=== PATIENT | female | born 1985 | race Caucasian/White ===

== ENCOUNTER 2025-02-05 06:54 | Inpatient (IN) | payer OTHER ==
[~2025-02-05] VITALS: Ht 170.2 cm; Wt 203.7 kg
[2025-02-05] VITALS (39 sets, daily range): BP systolic 100–162; BP diastolic 43–101; PULSE 17–88; RESP 11–31; TEMP 36.2–37.7; O2SAT 96–100
[2025-02-05 07:17] LABS: BASOPHILS % 0.9 % (0.0-2.0); EOSINOPHILS % 0.4 % (0.0-5.0); HEMATOCRIT. 29.0 % (36.0-48.0); HEMOGLOBIN. 9.2 g/dL (12.0-16.0); LYMPHOCYTES % 9.9 % (20.0-50.0); MEAN PLATELET VOLUME 9.4 fl (7.4-10.4); MONOCYTES % 6.9 % (2.0-8.0); NEUTROPHILS % 81.9 % (40.0-76.0); PLATELET 313 x1000/uL (130-400); RED BLOOD CELL COUNT 3.47 mill/uL (4.2-5.4); RED CELL DISTRIBUTION WIDTH 17.1 % (11.6-14.6)
[2025-02-05 07:54] LABS: CREATININE 3.4 mg/dL (0.6-1.0)
[2025-02-05 07:55] LABS: TROPONIN I HIGH SENSITIVITY 6 ng/L (3.0-34); UREA NITROGEN BLOOD 83 mg/dL (9-23)
[2025-02-05 07:57] LABS: ASPARTATE AMINOTRANSFERASE 37 IU/L (<34); BILIRUBIN DIRECT 0.4 mg/dL (<=3.0); BILIRUBIN TOTAL 0.8 mg/dL (0.1-1.0); PROTEIN TOTAL 7.2 g/dL (6.0-8.3)
[2025-02-05 08:06] LABS: BG BASE EXCESS -9.9 mmol/L (-2.0-3.0); BG CARBOXYHEMOGLOBIN 0.6 % (0.5-1.5); BG DEOXYHEMOGLOBIN 0.5 % (0.0-5.0); BG FRACTION INSPIRED OXYGEN 100; BG HCO3 ACT 19.2 mmol/L (21.0-28.0); BG METHEMOGLOBIN 0.1 % (0.5-1.5); BG OXYGEN SATURATION 99.5 % (94.0-98.0); BG OXYHEMOGLOBIN 98.8 % (94.0-98.0); BG PCO2 59.0 mmHg (32.0-45.0); BG PH 7.130 (7.350-7.450); BG PO2 388.5 mmHg (83.0-108.0); BG SAMPLE SITE RIGHT RADIAL; BG TOTAL HEMOGLOBIN 10.0 g/dL (12.0-16.0); BG VENT MODE MASK - BIPAP; BG VENT RATE 18.0 set
[2025-02-05] MEDS ORDERED: ALBUTEROL (0.5%) 2.5MG/0.5ML NEB HHN ONE (08:30)
[2025-02-05] MEDS ORDERED: SODIUM BICARBONATE 8.4% 50MEQ/50ML VIAL IV ONE (08:30)
[2025-02-05] MEDS: CALCIUM GLUCONATE 100MG/ML 10ML VIAL IV ONE (08:48)
[2025-02-05] MEDS: SODIUM BICARBONATE 8.4% 50MEQ/50ML VIAL IV NR ×2 (08:48→10:30)
[2025-02-05] MEDS: FUROSEMIDE 40MG/4ML VIAL IV ONE (08:49)
[2025-02-05] MEDS: DEXTROSE 50% WATER 50ML SYRINGE IV ONE (08:49)
[2025-02-05] MEDS: ALBUTEROL (0.5%) 2.5MG/0.5ML NEB HHN NR ×2 (08:50→10:30)
[2025-02-05] MEDS: INSULIN REGULAR (HUMULIN R) 1000UNITS/10ML VIAL IV ONE (08:51)
[2025-02-05 09:04] LABS: BG BASE EXCESS -10.2 mmol/L (-2.0-3.0); BG CARBOXYHEMOGLOBIN 0.7 % (0.5-1.5); BG DEOXYHEMOGLOBIN 2.2 % (0.0-5.0); BG FRACTION INSPIRED OXYGEN 40; BG HCO3 ACT 18.4 mmol/L (21.0-28.0); BG METHEMOGLOBIN 0.0 % (0.5-1.5); BG OXYGEN SATURATION 97.8 % (94.0-98.0); BG OXYHEMOGLOBIN 97.1 % (94.0-98.0); BG PCO2 53.4 mmHg (32.0-45.0); BG PH 7.154 (7.350-7.450); BG PO2 125.9 mmHg (83.0-108.0); BG SAMPLE SITE RIGHT RADIAL; BG TOTAL HEMOGLOBIN 10.3 g/dL (12.0-16.0); BG VENT MODE MASK - BIPAP; BG VENT RATE 18.0 set
[2025-02-05] MEDS ORDERED: INSULIN REGULAR (HUMULIN R) 1000UNITS/10ML VIAL IV NR (10:30)
[2025-02-05] MEDS ORDERED: CALCIUM GLUCONATE 100MG/ML 10ML VIAL IV NR (10:30)
[2025-02-05] MEDS ORDERED: DEXTROSE 50% WATER 50ML SYRINGE IV NR (10:30)
[2025-02-05] MEDS: IPRATROPIUM/ALBUTEROL 0.5-3(2.5)MG/3ML NEB HHN SCH (11:49)
[2025-02-05 12:41] LABS: BG BASE EXCESS -9.0 mmol/L (-2.0-3.0); BG CARBOXYHEMOGLOBIN 0.7 % (0.5-1.5); BG DEOXYHEMOGLOBIN 3.3 % (0.0-5.0); BG FRACTION INSPIRED OXYGEN 28; BG HCO3 ACT 19.4 mmol/L (21.0-28.0); BG METHEMOGLOBIN 0.3 % (0.5-1.5); BG OXYGEN SATURATION 96.7 % (94.0-98.0); BG OXYHEMOGLOBIN 95.7 % (94.0-98.0); BG PCO2 54.1 mmHg (32.0-45.0); BG PH 7.172 (7.350-7.450); BG PO2 99.8 mmHg (83.0-108.0); BG SAMPLE SITE RIGHT RADIAL; BG TOTAL HEMOGLOBIN 10.5 g/dL (12.0-16.0); BG TOTAL RESPIRATORY RATE 34 b/min; BG VENT MODE MASK - BIPAP; BG VENT RATE 30.0 set
[2025-02-05] MEDS: SODIUM ZIRCONIUM CYCLOSILICATE 10GM/PACKET PO SCH (13:30)
[2025-02-05] MEDS: SODIUM BICARBONATE 8.4% 50MEQ/50ML SYR IV NR (14:07)
[2025-02-05] MEDS: PANTOPRAZOLE SODIUM 40 MG/VIAL IV SCH (14:31)
[2025-02-05] MEDS ORDERED: DEXTROSE 50% WATER 50ML SYRINGE IV PRN (14:45)
[2025-02-05] MEDS ORDERED: NALOXONE HCL 1MG/ML 2ML VIAL ONE (15:17)
[2025-02-05] MEDS: NALOXONE HCL 1MG/ML 2ML VIAL IV SCH (15:43)
[2025-02-05] MEDS ORDERED: NALOXONE HCL 1MG/ML 2ML VIAL IV SCH (15:45)
[2025-02-05] MEDS ORDERED: NALOXONE HCL 0.4MG/ML 1ML VIAL IV PRN (16:00)
[2025-02-05 17:29] LABS: CREATININE 3.2 mg/dL (0.6-1.0); UREA NITROGEN BLOOD 77.0 mg/dL (9-23)
[2025-02-05] MEDS: BLOOD SUGAR DIAGNOSTIC STRIP TEST SCH (17:48)
[2025-02-05] MEDS: PROPOFOL 10MG/ML 100ML 100 ML IV PRN (17:49)
[2025-02-05 18:09] LABS: BG BASE EXCESS -8.4 mmol/L (-2.0-3.0); BG CARBOXYHEMOGLOBIN 0.6 % (0.5-1.5); BG DEOXYHEMOGLOBIN 1.2 % (0.0-5.0); BG FRACTION INSPIRED OXYGEN 60; BG HCO3 ACT 18.7 mmol/L (21.0-28.0); BG METHEMOGLOBIN 0.3 % (0.5-1.5); BG OXYGEN SATURATION 98.8 % (94.0-98.0); BG OXYHEMOGLOBIN 97.9 % (94.0-98.0); BG PCO2 45.0 mmHg (32.0-45.0); BG PEEP (cmH2O) 5.0 cmH2O; BG PH 7.237 (7.350-7.450); BG PO2 153.1 mmHg (83.0-108.0); BG SAMPLE SITE LEFT RADIAL; BG TIDAL VOLUME(mL) 450.0 mL; BG TOTAL HEMOGLOBIN 10.7 g/dL (12.0-16.0); BG VENT MODE VENT - AC; BG VENT RATE 22.0 set
[2025-02-05 18:16] LABS: HEMATOCRIT. 30.3 % (36.0-48.0); HEMOGLOBIN. 9.5 g/dL (12.0-16.0); MEAN PLATELET VOLUME 9.1 fl (7.4-10.4); PLATELET 294 x1000/uL (130-400); RED BLOOD CELL COUNT 3.61 mill/uL (4.2-5.4); RED CELL DISTRIBUTION WIDTH 16.6 % (11.6-14.6)
[2025-02-05 18:29] LABS: CREATININE 3.3 mg/dL (0.6-1.0); UREA NITROGEN BLOOD 78 mg/dL (9-23)
[2025-02-05 18:31] LABS: PHOSPHORUS 7.8 mg/dL (2.5-4.9)
[2025-02-05] MEDS: INSULIN LISPRO 100 UNITS/ML SUBCUT SCH (18:48)
[2025-02-05] MEDS: SODIUM BICARBONATE 8.4% 50MEQ/50ML SYR IV SCH (18:48)
[2025-02-05 19:02] LABS: BAND% 1.0 % (1.0-6.0); LYMPHOCYTES % MANUAL 5.0 % (20.0-60.0); MONOCYTES % MANUAL 4.0 % (2.0-8.0); NEUTROPHILS % MANUAL 90.0 % (45.0-75.0); PLATELET ESTIMATE NORMAL
[2025-02-05] MEDS: CEFTRIAXONE 1GM/50ML 50 ML IV SCH (19:20)
[2025-02-05 20:38] LABS: CLARITY URINE CLOUDY (CLEAR); COLOR URINE YELLOW (YELLOW); GLUCOSE URINE 3+ (NEGATIVE); KETONES URINE NEGATIVE (NEGATIVE); LEUKOCYTE ESTERASE URINE TRACE (NEGATIVE); NITRITE URINE NEGATIVE (NEGATIVE); OCCULT BLOOD URINE 3+ (NEGATIVE); PH URINE 5.0 (4.5-8.0); PROTEIN URINE 2+ (NEGATIVE); SPECIFIC GRAVITY URINE 1.014 (1.005-1.030); UROBILINOGEN URINE 1.0 E.U./dL (0.2-1.0)
[2025-02-05 20:44] LABS: BACTERIA URINE 2+; RBC URINE 15-25 /hpf (0-2); SQUAMOUS EPITHELIAL CELL URINE FEW /lpf (RARE/1+)
[2025-02-05 20:48] LABS: *AMPHETAMINES SCREEN URINE NEGATIVE (NEGATIVE); *BARBITURATES SCREEN URINE NEGATIVE (NEGATIVE); *BENZODIAZEPINES SCREEN URINE NEGATIVE (NEGATIVE); *COCAINE SCREEN URINE NEGATIVE (NEGATIVE); CANNABINOID URINE SCREEN PRESUMPTIVE POSITIVE (NEGATIVE); ECSTASY MDMA SCREEN URINE NEGATIVE (NEGATIVE); METHADONE URINE SCREEN NEGATIVE (NEGATIVE); OPIATES URINE SCREEN PRESUMPTIVE POSITIVE (NEGATIVE); PHENCYCLIDINE URINE SCREEN NEGATIVE (NEGATIVE)
[2025-02-05] MEDS: METHYLPREDNISOLONE SOD SUCC 40MG/ML (ACT-O-VIAL) IV SCH (20:53)
[2025-02-05] MEDS: ENOXAPARIN 40MG/0.4ML SYR SUBCUT SCH (20:53)
[2025-02-05 22:57] LABS: UCG KIT EXPIRATION DATE 03/11/2027; UCG KIT LOT# 982192; UCG SCREEN NEGATIVE
[2025-02-06] VITALS (75 sets, daily range): BP systolic 85–164; BP diastolic 52–105; PULSE 24–124; RESP 7–32; TEMP 36.55848–37.6; O2SAT 94–100
[2025-02-06 06:55] LABS: HEMATOCRIT. 28.3 % (36.0-48.0); HEMOGLOBIN. 9.2 g/dL (12.0-16.0); MEAN PLATELET VOLUME 9.5 fl (7.4-10.4); PLATELET 256 x1000/uL (130-400); RED BLOOD CELL COUNT 3.38 mill/uL (4.2-5.4); RED CELL DISTRIBUTION WIDTH 16.6 % (11.6-14.6)
[2025-02-06 07:06] LABS: CREATININE 2.9 mg/dL (0.6-1.0); TRIGLYCERIDE 176.0 mg/dL (0-150); UREA NITROGEN BLOOD 81.0 mg/dL (9-23)
[2025-02-06 08:24] LABS: HEPATITIS A AB IGM NEGATIVE (Negative)
[2025-02-06 08:25] LABS: HEPATITIS B CORE AB IGM NEGATIVE (Negative); HEPATITIS C AB NON REACTIVE (Neg) (Negative)
[2025-02-06] MEDS: FUROSEMIDE 40MG/4ML VIAL IVP SCH (08:41)
[2025-02-06 08:51] LABS: BAND% 5.0 % (1.0-6.0); LYMPHOCYTES % MANUAL 3.0 % (20.0-60.0); MONOCYTES % MANUAL 1.0 % (2.0-8.0); NEUTROPHILS % MANUAL 91.0 % (45.0-75.0); PLATELET ESTIMATE NORMAL
[2025-02-06] MEDS ORDERED: LIDOCAINE HCL 1% 10 MG/ML 10ML VIAL ONE (09:07)
[2025-02-06 10:00] LABS: INR 1.1
[2025-02-06] MEDS: NYSTATIN POWDER 15GM TOP SCH (13:00)
[2025-02-06 14:09] LABS: BG BASE EXCESS -8.3 mmol/L (-2.0-3.0); BG CARBOXYHEMOGLOBIN 0.8 % (0.5-1.5); BG DEOXYHEMOGLOBIN 0.2 % (0.0-5.0); BG FRACTION INSPIRED OXYGEN 100; BG HCO3 ACT 18.7 mmol/L (21.0-28.0); BG METHEMOGLOBIN 0.3 % (0.5-1.5); BG OXYGEN SATURATION 99.8 % (94.0-98.0); BG OXYHEMOGLOBIN 98.7 % (94.0-98.0); BG PCO2 44.2 mmHg (32.0-45.0); BG PEEP (cmH2O) 5.0 cmH2O; BG PH 7.244 (7.350-7.450); BG PO2 353.3 mmHg (83.0-108.0); BG SAMPLE SITE RIGHT RADIAL; BG TIDAL VOLUME(mL) 450.0 mL; BG TOTAL HEMOGLOBIN 12.0 g/dL (12.0-16.0); BG VENT MODE VENT - PRVC; BG VENT RATE 24.0 set
[2025-02-06] MEDS ORDERED: NOREPINEPHRINE 32 MG in DEXT 5% WATER 218 ML IV PRN (17:00)
[2025-02-06] MEDS: INSULIN LISPRO 100 UNITS/ML SUBCUT SCH (17:52)
[2025-02-06] MEDS: PROPOFOL 10MG/ML 100ML 100 ML IV PRN (18:50)
[2025-02-06] MEDS: LEVETIRACETAM 1000MG PREMIX 100 ML IV SCH (20:32)
[2025-02-06] MEDS ORDERED: LEVETIRACETAM 1,000MG in NACL 100ML PREMIX IV SCH (21:00)
[2025-02-06] MEDS: INSULIN GLARGINE 100 UNITS/ML SUBCUT SCH (21:46)
[2025-02-07] VITALS (84 sets, daily range): BP systolic 76–227; BP diastolic 54–181; PULSE 61–104; RESP 0–31; TEMP 36.55848–37; O2SAT 96–100
[2025-02-07] MEDS: MIDAZOLAM 100MG/100ML PMX 100 ML IV PRN (06:23)
[2025-02-07 07:27] LABS: BASOPHILS % 0.3 % (0.0-2.0); EOSINOPHILS % 0.0 % (0.0-5.0); HEMATOCRIT. 31.8 % (36.0-48.0); HEMOGLOBIN. 10.3 g/dL (12.0-16.0); LYMPHOCYTES % 8.6 % (20.0-50.0); MEAN PLATELET VOLUME 9.0 fl (7.4-10.4); MONOCYTES % 8.7 % (2.0-8.0); NEUTROPHILS % 82.4 % (40.0-76.0); PLATELET 313 x1000/uL (130-400); RED BLOOD CELL COUNT 3.80 mill/uL (4.2-5.4); RED CELL DISTRIBUTION WIDTH 17.3 % (11.6-14.6)
[2025-02-07 07:53] LABS: TRIGLYCERIDE 356.0 mg/dL (0-150); UREA NITROGEN BLOOD 66.0 mg/dL (9-23)
[2025-02-07 08:01] LABS: CREATININE 2.0 mg/dL (0.6-1.0)
[2025-02-07] MEDS ORDERED: PROPOFOL 10MG/ML 100ML 100 ML IV PRN (18:30)
[2025-02-07] MEDS: PROPOFOL 10MG/ML 100ML 100 ML IV PRN (19:50)
[2025-02-07] MEDS: LEVETIRACETAM 1500MG PREMIX 100 ML IV SCH (21:22)
[2025-02-08] VITALS (110 sets, daily range): BP systolic 138–199; BP diastolic 53–95; PULSE 7–109; RESP 19–30; TEMP 35.6–38.2; O2SAT 89–100
[2025-02-08 05:45] LABS: BASOPHILS % 0.1 % (0.0-2.0); EOSINOPHILS % 0.0 % (0.0-5.0); HEMATOCRIT. 30.2 % (36.0-48.0); HEMOGLOBIN. 9.7 g/dL (12.0-16.0); LYMPHOCYTES % 8.5 % (20.0-50.0); MEAN PLATELET VOLUME 8.6 fl (7.4-10.4); MONOCYTES % 6.5 % (2.0-8.0); NEUTROPHILS % 84.9 % (40.0-76.0); PLATELET 287 x1000/uL (130-400); RED BLOOD CELL COUNT 3.61 mill/uL (4.2-5.4); RED CELL DISTRIBUTION WIDTH 17.1 % (11.6-14.6)
[2025-02-08 06:09] LABS: TRIGLYCERIDE 353 mg/dL (0-150)
[2025-02-08 06:10] LABS: UREA NITROGEN BLOOD 47 mg/dL (9-23)
[2025-02-08 06:12] LABS: PHOSPHORUS 4.0 mg/dL (2.5-4.9)
[2025-02-08 06:44] LABS: CREATININE 1.3 mg/dL (0.6-1.0)
[2025-02-08 10:01] LABS: BG BASE EXCESS -1.2 mmol/L (-2.0-3.0); BG CARBOXYHEMOGLOBIN 1.4 % (0.5-1.5); BG DEOXYHEMOGLOBIN 3.0 % (0.0-5.0); BG FRACTION INSPIRED OXYGEN 40; BG HCO3 ACT 23.0 mmol/L (21.0-28.0); BG METHEMOGLOBIN 0.3 % (0.5-1.5); BG OXYGEN SATURATION 96.9 % (94.0-98.0); BG OXYHEMOGLOBIN 95.3 % (94.0-98.0); BG PCO2 36.5 mmHg (32.0-45.0); BG PEEP (cmH2O) 5.0 cmH2O; BG PH 7.417 (7.350-7.450); BG PO2 95.7 mmHg (83.0-108.0); BG SAMPLE SITE RIGHT RADIAL; BG TIDAL VOLUME(mL) 500.0 mL; BG TOTAL HEMOGLOBIN 11.8 g/dL (12.0-16.0); BG VENT MODE VENT - AC; BG VENT RATE 24.0 set
[2025-02-08] MEDS ORDERED: MECL-299 MT (10:02)
[2025-02-08] MEDS ORDERED: OXYC-105 PO (10:02)
[2025-02-08] MEDS ORDERED: LORA2DIS6 IJ (10:02)
[2025-02-08] MEDS ORDERED: GABA-1180 MT (10:02)
[2025-02-08] MEDS ORDERED: TRAZ-252 PO (10:15)
[2025-02-08] MEDS ORDERED: LOSA100T33 PO (10:15)
[2025-02-08] MEDS ORDERED: PRAZ5CAP2 PO (10:15)
[2025-02-08] MEDS ORDERED: SERT-112 PO (10:15)
[2025-02-08] MEDS ORDERED: METH-774 PO (10:15)
[2025-02-08] MEDS ORDERED: QUET200T PO (10:15)
[2025-02-08] MEDS ORDERED: BUME1TAB8 PO (10:15)
[2025-02-08] MEDS ORDERED: EMPA25TA PO (10:15)
[2025-02-08] MEDS ORDERED: CARV12.545 PO (10:15)
[2025-02-08] MEDS: AMLODIPINE 10MG TABLET PO SCH (13:32)
[2025-02-08] MEDS: HYDRALAZINE HCL 100MG TABLET PO SCH (15:53)
[2025-02-08] MEDS: MIDAZOLAM HCL 100 MG in SODIUM CHLORIDE 0.9% 100 ML IV PRN (16:49)
[2025-02-08] MEDS: ACETAMINOPHEN 325MG TABLET PO PRN (18:08)
[2025-02-08] MEDS ORDERED: HYDRALAZINE HCL 50MG TABLET PO SCH (21:00)
[2025-02-08] MEDS: INSULIN GLARGINE 100 UNITS/ML SUBCUT SCH (22:40)
[2025-02-08] MEDS: VANCOMYCIN 1G PREMIX 200 ML IV SCH (22:41)
[2025-02-09] VITALS (109 sets, daily range): BP systolic 127–200; BP diastolic 45–121; PULSE 76–130; RESP 8–36; TEMP 36.7–37.7; O2SAT 92–98
[2025-02-09] MEDS: HYDRALAZINE 20MG/ML VIAL IV NR (01:21)
[2025-02-09] MEDS: CLONIDINE 0.1MG TABLET NG PRN (02:53)
[2025-02-09] MEDS: LABETALOL 5MG/ML 4ML INJ IV NR (04:20)
[2025-02-09] MEDS: VANCOMYCIN 1.25GM/250ML 250 ML IV SCH ×2 (05:01→14:30)
[2025-02-09] MEDS: NICARDIPINE 50 MG in SODIUM CHLORIDE 0.9% 230 ML IV PRN (05:37)
[2025-02-09 05:52] LABS: CREATININE 1.3 mg/dL (0.6-1.0)
[2025-02-09 05:53] LABS: UREA NITROGEN BLOOD 36 mg/dL (9-23)
[2025-02-09 05:55] LABS: PHOSPHORUS 4.6 mg/dL (2.5-4.9)
[2025-02-09] MEDS: PROPOFOL 10MG/ML 100ML 100 ML IV PRN (06:03)
[2025-02-09 09:17] LABS: BG BASE EXCESS -6.2 mmol/L (-2.0-3.0); BG CARBOXYHEMOGLOBIN 1.7 % (0.5-1.5); BG DEOXYHEMOGLOBIN 5.3 % (0.0-5.0); BG FRACTION INSPIRED OXYGEN 40; BG HCO3 ACT 17.8 mmol/L (21.0-28.0); BG METHEMOGLOBIN 0.3 % (0.5-1.5); BG OXYGEN SATURATION 94.6 % (94.0-98.0); BG OXYHEMOGLOBIN 92.7 % (94.0-98.0); BG PCO2 31.1 mmHg (32.0-45.0); BG PEEP (cmH2O) 5.0 cmH2O; BG PH 7.376 (7.350-7.450); BG PO2 76.6 mmHg (83.0-108.0); BG SAMPLE SITE RIGHT RADIAL; BG TIDAL VOLUME(mL) 500.0 mL; BG TOTAL HEMOGLOBIN 12.9 g/dL (12.0-16.0); BG VENT MODE VENT - AC; BG VENT RATE 24.0 set
[2025-02-09] MEDS: INSULIN GLARGINE 100 UNITS/ML SUBCUT SCH (10:21)
[2025-02-09] MEDS: ISOSORBIDE MONONITRATE 30MG TABLET SR 24HR PO SCH (12:20)
[2025-02-09] MEDS: INSULIN LISPRO 100 UNITS/ML SUBCUT NR ×2 (12:21→17:40)
[2025-02-09] MEDS: INSULIN LISPRO 100 UNITS/ML SUBCUT SCH (21:08)
[2025-02-10] VITALS (107 sets, daily range): BP systolic 128–183; BP diastolic 55–94; PULSE 77–102; RESP 0–35; TEMP 36.9–39.2; O2SAT 90–100
[2025-02-10] MEDS: INSULIN LISPRO 100 UNITS/ML SUBCUT NR (02:42)
[2025-02-10] MEDS: BLOOD SUGAR DIAGNOSTIC STRIP TEST SCH (04:00)
[2025-02-10] MEDS: PROPOFOL 10MG/ML 100ML 100 ML IV PRN (07:01)
[2025-02-10 07:16] LABS: BASOPHILS % 0.2 % (0.0-2.0); EOSINOPHILS % 0.1 % (0.0-5.0); HEMATOCRIT. 34.6 % (36.0-48.0); HEMOGLOBIN. 10.7 g/dL (12.0-16.0); LYMPHOCYTES % 10.1 % (20.0-50.0); MEAN PLATELET VOLUME 8.6 fl (7.4-10.4); MONOCYTES % 10.0 % (2.0-8.0); NEUTROPHILS % 79.6 % (40.0-76.0); PLATELET 303 x1000/uL (130-400); RED BLOOD CELL COUNT 4.14 mill/uL (4.2-5.4); RED CELL DISTRIBUTION WIDTH 17.3 % (11.6-14.6)
[2025-02-10 07:26] LABS: CREATININE 1.3 mg/dL (0.6-1.0); TRIGLYCERIDE 322 mg/dL (0-150); UREA NITROGEN BLOOD 49 mg/dL (9-23)
[2025-02-10 07:28] LABS: PHOSPHORUS 3.2 mg/dL (2.5-4.9)
[2025-02-10 08:51] LABS: BG BASE EXCESS 4.1 mmol/L (-2.0-3.0); BG CARBOXYHEMOGLOBIN 0.9 % (0.5-1.5); BG DEOXYHEMOGLOBIN 6.3 % (0.0-5.0); BG FRACTION INSPIRED OXYGEN 40; BG HCO3 ACT 27.9 mmol/L (21.0-28.0); BG METHEMOGLOBIN 0.3 % (0.5-1.5); BG OXYGEN SATURATION 93.6 % (94.0-98.0); BG OXYHEMOGLOBIN 92.5 % (94.0-98.0); BG PCO2 38.9 mmHg (32.0-45.0); BG PEEP (cmH2O) 5.0 cmH2O; BG PH 7.474 (7.350-7.450); BG PO2 69.2 mmHg (83.0-108.0); BG SAMPLE SITE RIGHT RADIAL; BG TIDAL VOLUME(mL) 500.0 mL; BG TOTAL HEMOGLOBIN 11.3 g/dL (12.0-16.0); BG VENT MODE VENT - AC; BG VENT RATE 18.0 set
[2025-02-10] MEDS ORDERED: LIDOCAINE HCL 1% 10 MG/ML 10ML VIAL ONE (09:20)
[2025-02-10] MEDS: POTASSIUM CHLORIDE 20MEQ/PACKET PO NR (09:45)
[2025-02-10] MEDS: INSULIN LISPRO 100 UNITS/ML SUBCUT SCH (09:48)
[2025-02-10] MEDS: MEROPENEM 1G/100ML 100 ML IV SCH (14:49)
[2025-02-10] MEDS: ACETYLCYSTEINE 200MG/ML 20% VIAL 4ML INH SCH (16:25)
[2025-02-10] MEDS: IPRATROPIUM/ALBUTEROL 0.5-3(2.5)MG/3ML NEB HHN PRN (16:25)
[2025-02-10] MEDS: IPRATROPIUM/ALBUTEROL 0.5-3(2.5)MG/3ML NEB HHN SCH (20:52)
[2025-02-10] MEDS: ACETAMINOPHEN 1000MG/100ML 100 ML IV SCH (22:54)
[2025-02-11] VITALS (106 sets, daily range): BP systolic 139–170; BP diastolic 54–88; PULSE 81–100; RESP 14–35; TEMP 37.1–37.9; O2SAT 92–100
[2025-02-11] MEDS: INSULIN LISPRO 100 UNITS/ML SUBCUT SCH ×2 (00:30→12:40)
[2025-02-11 05:33] LABS: BASOPHILS % 0.6 % (0.0-2.0); EOSINOPHILS % 0.1 % (0.0-5.0); HEMATOCRIT. 35.0 % (36.0-48.0); HEMOGLOBIN. 10.9 g/dL (12.0-16.0); LYMPHOCYTES % 11.4 % (20.0-50.0); MEAN PLATELET VOLUME 8.4 fl (7.4-10.4); MONOCYTES % 8.0 % (2.0-8.0); NEUTROPHILS % 79.9 % (40.0-76.0); PLATELET 252 x1000/uL (130-400); RED BLOOD CELL COUNT 4.18 mill/uL (4.2-5.4); RED CELL DISTRIBUTION WIDTH 17.0 % (11.6-14.6)
[2025-02-11 05:45] LABS: CREATININE 1.4 mg/dL (0.6-1.0); UREA NITROGEN BLOOD 46.0 mg/dL (9-23)
[2025-02-11] MEDS: MIDAZOLAM 100MG/100ML PMX 100 ML IV PRN (06:38)
[2025-02-11] MEDS: METOLAZONE 2.5MG TABLET NG SCH (08:27)
[2025-02-11] MEDS: FUROSEMIDE 40MG/4ML VIAL IVP SCH (08:27)
[2025-02-11] MEDS ORDERED: METOLAZONE 5MG TABLET NG SCH (09:30)
[2025-02-11 09:35] LABS: BG BASE EXCESS 1.4 mmol/L (-2.0-3.0); BG CARBOXYHEMOGLOBIN 1.0 % (0.5-1.5); BG DEOXYHEMOGLOBIN 4.5 % (0.0-5.0); BG FRACTION INSPIRED OXYGEN 50; BG HCO3 ACT 25.3 mmol/L (21.0-28.0); BG METHEMOGLOBIN 0.3 % (0.5-1.5); BG OXYGEN SATURATION 95.4 % (94.0-98.0); BG OXYHEMOGLOBIN 94.2 % (94.0-98.0); BG PCO2 37.2 mmHg (32.0-45.0); BG PEEP (cmH2O) 5.0 cmH2O; BG PH 7.450 (7.350-7.450); BG PO2 77.0 mmHg (83.0-108.0); BG SAMPLE SITE RIGHT RADIAL; BG TIDAL VOLUME(mL) 500.0 mL; BG TOTAL HEMOGLOBIN 12.0 g/dL (12.0-16.0); BG VENT MODE VENT - AC; BG VENT RATE 18.0 set
[2025-02-11] MEDS: INSULIN GLARGINE 100 UNITS/ML SUBCUT SCH (09:50)
[2025-02-11] MEDS: PROPOFOL 10MG/ML 100ML 100 ML IV PRN (15:25)
[2025-02-11] MEDS: VANCOMYCIN 1.25GM/250ML IV SCH (17:20)
[2025-02-12] VITALS (105 sets, daily range): BP systolic 122–172; BP diastolic 55–80; PULSE 83–106; RESP 8–39; TEMP 98.3–101.1; O2SAT 92–99
[2025-02-12] MEDS: NICARDIPINE 20MG/200ML PREMIX 200 ML IV PRN (03:20)
[2025-02-12 06:06] LABS: HEMATOCRIT. 33.5 % (36.0-48.0); HEMOGLOBIN. 10.3 g/dL (12.0-16.0); MEAN PLATELET VOLUME 8.6 fl (7.4-10.4); PLATELET 219 x1000/uL (130-400); RED BLOOD CELL COUNT 3.98 mill/uL (4.2-5.4); RED CELL DISTRIBUTION WIDTH 17.8 % (11.6-14.6)
[2025-02-12 06:46] LABS: CREATININE 1.4 mg/dL (0.6-1.0); TRIGLYCERIDE 167.0 mg/dL (0-150); UREA NITROGEN BLOOD 58.0 mg/dL (9-23)
[2025-02-12] MEDS: NICARDIPINE 50 MG in SODIUM CHLORIDE 0.9% 230 ML IV PRN (10:01)
[2025-02-12 10:25] LABS: BG BASE EXCESS 4.1 mmol/L (-2.0-3.0); BG CARBOXYHEMOGLOBIN 1.4 % (0.5-1.5); BG DEOXYHEMOGLOBIN 6.0 % (0.0-5.0); BG FRACTION INSPIRED OXYGEN 60; BG HCO3 ACT 27.4 mmol/L (21.0-28.0); BG METHEMOGLOBIN 0.3 % (0.5-1.5); BG OXYGEN SATURATION 93.9 % (94.0-98.0); BG OXYHEMOGLOBIN 92.3 % (94.0-98.0); BG PCO2 35.9 mmHg (32.0-45.0); BG PEEP (cmH2O) 5.0 cmH2O; BG PH 7.500 (7.350-7.450); BG PO2 68.9 mmHg (83.0-108.0); BG SAMPLE SITE RIGHT RADIAL; BG TIDAL VOLUME(mL) 500.0 mL; BG TOTAL HEMOGLOBIN 10.6 g/dL (12.0-16.0); BG VENT MODE VENT - PRVC; BG VENT RATE 18.0 set
[2025-02-12 12:13] LABS: BAND% 8.0 % (1.0-6.0); LYMPHOCYTES % MANUAL 6.0 % (20.0-60.0); MONOCYTES % MANUAL 2.0 % (2.0-8.0); NEUTROPHILS % MANUAL 84.0 % (45.0-75.0); PLATELET ESTIMATE NORMAL
[2025-02-12] MEDS: PROPOFOL 10MG/ML 100ML 100 ML IV PRN (16:58)
[2025-02-12] MEDS: AZITHROMYCIN 500MG/250ML 250 ML IV SCH (19:57)
[2025-02-13] VITALS (104 sets, daily range): BP systolic 128–166; BP diastolic 54–78; PULSE 80–103; RESP 17–41; TEMP 37.8; O2SAT 85–99
[2025-02-13 06:10] LABS: BASOPHILS % 0.3 % (0.0-2.0); EOSINOPHILS % 1.1 % (0.0-5.0); HEMATOCRIT. 31.4 % (36.0-48.0); HEMOGLOBIN. 9.9 g/dL (12.0-16.0); LYMPHOCYTES % 11.8 % (20.0-50.0); MEAN PLATELET VOLUME 8.7 fl (7.4-10.4); MONOCYTES % 7.7 % (2.0-8.0); NEUTROPHILS % 79.1 % (40.0-76.0); PLATELET 176 x1000/uL (130-400); RED BLOOD CELL COUNT 3.72 mill/uL (4.2-5.4); RED CELL DISTRIBUTION WIDTH 17.2 % (11.6-14.6)
[2025-02-13 06:26] LABS: CREATININE 1.3 mg/dL (0.6-1.0)
[2025-02-13 06:27] LABS: UREA NITROGEN BLOOD 62.0 mg/dL (9-23)
[2025-02-13 09:18] LABS: BG BASE EXCESS 1.3 mmol/L (-2.0-3.0); BG CARBOXYHEMOGLOBIN 1.4 % (0.5-1.5); BG DEOXYHEMOGLOBIN 4.8 % (0.0-5.0); BG FRACTION INSPIRED OXYGEN 60; BG HCO3 ACT 24.8 mmol/L (21.0-28.0); BG METHEMOGLOBIN 0.3 % (0.5-1.5); BG OXYGEN SATURATION 95.1 % (94.0-98.0); BG OXYHEMOGLOBIN 93.5 % (94.0-98.0); BG PCO2 35.1 mmHg (32.0-45.0); BG PEEP (cmH2O) 5.0 cmH2O; BG PH 7.467 (7.350-7.450); BG PO2 74.7 mmHg (83.0-108.0); BG SAMPLE SITE RIGHT RADIAL; BG TIDAL VOLUME(mL) 500.0 mL; BG TOTAL HEMOGLOBIN 10.8 g/dL (12.0-16.0); BG VENT MODE VENT - PRVC; BG VENT RATE 18.0 set
[2025-02-13] MEDS: POTASSIUM CHLORIDE 20MEQ/PACKET NG NR (10:20)
[2025-02-13] MEDS: INSULIN GLARGINE 100 UNITS/ML SUBCUT SCH ×2 (10:29→21:08)
[2025-02-13] MEDS: FUROSEMIDE 40MG/4ML VIAL IVP SCH (12:14)
[2025-02-13 15:54] LABS: TRIGLYCERIDE 164.0 mg/dL (0-150)
[2025-02-13 15:55] LABS: LDL CHOLESTEROL 97.0 mg/dL (5-100)
[2025-02-13] MEDS: PROPOFOL 10MG/ML 100ML 100 ML IV PRN (17:20)
[2025-02-14] VITALS (101 sets, daily range): BP systolic 113–192; BP diastolic 56–83; PULSE 82–103; RESP 19–36; TEMP 36.9–38.5; O2SAT 87–98
[2025-02-14 00:35] LABS: BG BASE EXCESS 6.2 mmol/L (-2.0-3.0); BG CARBOXYHEMOGLOBIN 0.6 % (0.5-1.5); BG DEOXYHEMOGLOBIN 1.5 % (0.0-5.0); BG FRACTION INSPIRED OXYGEN 70; BG HCO3 ACT 29.2 mmol/L (21.0-28.0); BG METHEMOGLOBIN 0.3 % (0.5-1.5); BG OXYGEN SATURATION 98.5 % (94.0-98.0); BG OXYHEMOGLOBIN 97.6 % (94.0-98.0); BG PCO2 36.0 mmHg (32.0-45.0); BG PEEP (cmH2O) 5.0 cmH2O; BG PH 7.527 (7.350-7.450); BG PO2 116.1 mmHg (83.0-108.0); BG SAMPLE SITE ALINE; BG TIDAL VOLUME(mL) 500.0 mL; BG TOTAL HEMOGLOBIN 9.8 g/dL (12.0-16.0); BG VENT RATE 18.0 set
[2025-02-14 01:00] LABS: BASOPHILS % 0.5 % (0.0-2.0); EOSINOPHILS % 1.3 % (0.0-5.0); HEMATOCRIT. 29.6 % (36.0-48.0); HEMOGLOBIN. 9.4 g/dL (12.0-16.0); LYMPHOCYTES % 14.1 % (20.0-50.0); MEAN PLATELET VOLUME 9.4 fl (7.4-10.4); MONOCYTES % 10.4 % (2.0-8.0); NEUTROPHILS % 73.7 % (40.0-76.0); PLATELET 173 x1000/uL (130-400); RED BLOOD CELL COUNT 3.52 mill/uL (4.2-5.4); RED CELL DISTRIBUTION WIDTH 16.9 % (11.6-14.6)
[2025-02-14 01:12] LABS: CREATININE 1.2 mg/dL (0.6-1.0)
[2025-02-14 01:13] LABS: CREATINE KINASE MB FRACTION < 0.5 ng/mL (0.5-3.6); UREA NITROGEN BLOOD 61 mg/dL (9-23)
[2025-02-14 01:14] LABS: ASPARTATE AMINOTRANSFERASE 13 IU/L (<34); BILIRUBIN DIRECT 0.2 mg/dL (<=3.0)
[2025-02-14 01:15] LABS: BILIRUBIN TOTAL 0.5 mg/dL (0.1-1.0); PHOSPHORUS 3.6 mg/dL (2.5-4.9); PROTEIN TOTAL 6.3 g/dL (6.0-8.3)
[2025-02-14 01:35] LABS: INR 1.1
[2025-02-14 06:14] LABS: BG BASE EXCESS 3.9 mmol/L (-2.0-3.0); BG CARBOXYHEMOGLOBIN 0.9 % (0.5-1.5); BG DEOXYHEMOGLOBIN 2.1 % (0.0-5.0); BG FRACTION INSPIRED OXYGEN 70; BG HCO3 ACT 26.3 mmol/L (21.0-28.0); BG METHEMOGLOBIN 0.3 % (0.5-1.5); BG OXYGEN SATURATION 97.9 % (94.0-98.0); BG OXYHEMOGLOBIN 96.7 % (94.0-98.0); BG PCO2 31.5 mmHg (32.0-45.0); BG PEEP (cmH2O) 5.0 cmH2O; BG PH 7.539 (7.350-7.450); BG PO2 107.2 mmHg (83.0-108.0); BG SAMPLE SITE ALINE; BG TIDAL VOLUME(mL) 500.0 mL; BG TOTAL HEMOGLOBIN 9.6 g/dL (12.0-16.0); BG VENT RATE 18.0 set
[2025-02-14] MEDS: VANCOMYCIN 1G PREMIX 200 ML IV SCH (06:39)
[2025-02-14 06:56] LABS: BASOPHILS % 0.5 % (0.0-2.0); EOSINOPHILS % 2.0 % (0.0-5.0); HEMATOCRIT. 28.8 % (36.0-48.0); HEMOGLOBIN. 9.1 g/dL (12.0-16.0); LYMPHOCYTES % 17.6 % (20.0-50.0); MEAN PLATELET VOLUME 9.7 fl (7.4-10.4); MONOCYTES % 11.0 % (2.0-8.0); NEUTROPHILS % 68.9 % (40.0-76.0); PLATELET 152 x1000/uL (130-400); RED BLOOD CELL COUNT 3.44 mill/uL (4.2-5.4); RED CELL DISTRIBUTION WIDTH 17.2 % (11.6-14.6)
[2025-02-14 07:10] LABS: CREATINE KINASE MB FRACTION < 0.5 ng/mL (0.5-3.6)
[2025-02-14 07:12] LABS: CREATININE 1.1 mg/dL (0.6-1.0); TRIGLYCERIDE 155 mg/dL (0-150); UREA NITROGEN BLOOD 56 mg/dL (9-23)
[2025-02-14 07:14] LABS: ASPARTATE AMINOTRANSFERASE 16 IU/L (<34); BILIRUBIN DIRECT 0.2 mg/dL (<=3.0); BILIRUBIN TOTAL 0.4 mg/dL (0.1-1.0); PHOSPHORUS 3.5 mg/dL (2.5-4.9); PROTEIN TOTAL 6.1 g/dL (6.0-8.3)
[2025-02-14 12:04] LABS: INR 1.0
[2025-02-14] MEDS: HYDRALAZINE HCL 100MG TABLET PO SCH (12:37)
[2025-02-14 12:50] LABS: BG BASE EXCESS 3.8 mmol/L (-2.0-3.0); BG CARBOXYHEMOGLOBIN 0.5 % (0.5-1.5); BG DEOXYHEMOGLOBIN 4.5 % (0.0-5.0); BG FRACTION INSPIRED OXYGEN 85; BG HCO3 ACT 27.3 mmol/L (21.0-28.0); BG METHEMOGLOBIN 0.3 % (0.5-1.5); BG OXYGEN SATURATION 95.5 % (94.0-98.0); BG OXYHEMOGLOBIN 94.7 % (94.0-98.0); BG PCO2 37.2 mmHg (32.0-45.0); BG PEEP (cmH2O) 5.0 cmH2O; BG PH 7.484 (7.350-7.450); BG PO2 79.7 mmHg (83.0-108.0); BG SAMPLE SITE ALINE; BG TIDAL VOLUME(mL) 500.0 mL; BG TOTAL HEMOGLOBIN 9.8 g/dL (12.0-16.0); BG TOTAL RESPIRATORY RATE 28 b/min; BG VENT MODE VENT-PRVC; BG VENT RATE 18.0 set
[2025-02-14 12:56] LABS: BASOPHILS % 0.6 % (0.0-2.0); EOSINOPHILS % 2.8 % (0.0-5.0); HEMATOCRIT. 30.6 % (36.0-48.0); HEMOGLOBIN. 9.7 g/dL (12.0-16.0); LYMPHOCYTES % 16.6 % (20.0-50.0); MEAN PLATELET VOLUME 10.1 fl (7.4-10.4); MONOCYTES % 10.1 % (2.0-8.0); NEUTROPHILS % 69.9 % (40.0-76.0); PLATELET 161 x1000/uL (130-400); RED BLOOD CELL COUNT 3.61 mill/uL (4.2-5.4); RED CELL DISTRIBUTION WIDTH 16.7 % (11.6-14.6)
[2025-02-14 13:09] LABS: CREATININE 1.1 mg/dL (0.6-1.0)
[2025-02-14 13:10] LABS: UREA NITROGEN BLOOD 41 mg/dL (9-23)
[2025-02-14 13:11] LABS: ASPARTATE AMINOTRANSFERASE 16 IU/L (<34); BILIRUBIN DIRECT 0.3 mg/dL (<=3.0); CREATINE KINASE MB FRACTION < 0.5 ng/mL (0.5-3.6)
[2025-02-14 13:12] LABS: BILIRUBIN TOTAL 0.6 mg/dL (0.1-1.0); PHOSPHORUS 3.7 mg/dL (2.5-4.9); PROTEIN TOTAL 6.3 g/dL (6.0-8.3)
[2025-02-14 14:43] LABS: GLUCOSE URINE TRACE (NEGATIVE); KETONES URINE NEGATIVE (NEGATIVE); LEUKOCYTE ESTERASE URINE TRACE (NEGATIVE); NITRITE URINE NEGATIVE (NEGATIVE); OCCULT BLOOD URINE TRACE (NEGATIVE); PH URINE 6.5 (4.5-8.0); PROTEIN URINE 1+ (NEGATIVE); SPECIFIC GRAVITY URINE 1.010 (1.005-1.030); UROBILINOGEN URINE 0.2 E.U./dL (0.2-1.0)
[2025-02-14 15:31] LABS: CLARITY URINE HAZY (CLEAR); COLOR URINE STRAW (YELLOW)
[2025-02-14 15:35] LABS: RBC URINE NONE SEEN /hpf (0-2); WBC URINE 0-2 /hpf (0-2)
[2025-02-14 15:36] LABS: BACTERIA URINE NONE SEEN; MUCUS URINE TRACE /lpf (< = 2+); SQUAMOUS EPITHELIAL CELL URINE FEW /lpf (RARE/1+); YEAST URINE 2+
[2025-02-14 18:22] LABS: BG BASE EXCESS 7.5 mmol/L (-2.0-3.0); BG CARBOXYHEMOGLOBIN 0.3 % (0.5-1.5); BG DEOXYHEMOGLOBIN 2.4 % (0.0-5.0); BG FRACTION INSPIRED OXYGEN 85; BG HCO3 ACT 31.3 mmol/L (21.0-28.0); BG METHEMOGLOBIN 0.3 % (0.5-1.5); BG OXYGEN SATURATION 97.6 % (94.0-98.0); BG OXYHEMOGLOBIN 97.0 % (94.0-98.0); BG PCO2 41.0 mmHg (32.0-45.0); BG PEEP (cmH2O) 5.0 cmH2O; BG PH 7.501 (7.350-7.450); BG PO2 100.9 mmHg (83.0-108.0); BG SAMPLE SITE RIGHT RADIAL; BG TIDAL VOLUME(mL) 500.0 mL; BG TOTAL HEMOGLOBIN 10.3 g/dL (12.0-16.0); BG VENT MODE VENT - PRVC; BG VENT RATE 18.0 set
[2025-02-14 18:47] LABS: BASOPHILS % 0.4 % (0.0-2.0); EOSINOPHILS % 3.4 % (0.0-5.0); HEMATOCRIT. 30.3 % (36.0-48.0); HEMOGLOBIN. 9.7 g/dL (12.0-16.0); LYMPHOCYTES % 16.3 % (20.0-50.0); MEAN PLATELET VOLUME 9.4 fl (7.4-10.4); MONOCYTES % 11.5 % (2.0-8.0); NEUTROPHILS % 68.4 % (40.0-76.0); PLATELET 178 x1000/uL (130-400); RED BLOOD CELL COUNT 3.63 mill/uL (4.2-5.4); RED CELL DISTRIBUTION WIDTH 16.5 % (11.6-14.6)
[2025-02-14 18:56] LABS: CREATININE 1.1 mg/dL (0.6-1.0); INR 1.0; UREA NITROGEN BLOOD 49 mg/dL (9-23)
[2025-02-14 18:57] LABS: CREATINE KINASE MB FRACTION < 0.5 ng/mL (0.5-3.6)
[2025-02-14 18:58] LABS: ASPARTATE AMINOTRANSFERASE 18 IU/L (<34); BILIRUBIN DIRECT 0.2 mg/dL (<=3.0); BILIRUBIN TOTAL 0.5 mg/dL (0.1-1.0); PHOSPHORUS 3.6 mg/dL (2.5-4.9); PROTEIN TOTAL 6.3 g/dL (6.0-8.3)
[2025-02-14] MEDS: PROPOFOL 10MG/ML 100ML 100 ML IV PRN (19:16)
[2025-02-14] MEDS: INSULIN GLARGINE 100 UNITS/ML SUBCUT SCH (22:00)
[2025-02-14] MEDS: ONDANSETRON HCL 4MG/2ML INJ IV PRN (23:13)
[2025-02-15] VITALS (71 sets, daily range): BP systolic 42–175; BP diastolic 13–81; PULSE 88–108; RESP 19–56; TEMP 36.7; O2SAT 92–100
[2025-02-15] MEDS: MIDAZOLAM HCL 2 MG/2 ML VIAL IV NR (03:15)
[2025-02-15 03:46] LABS: BG BASE EXCESS 6.3 mmol/L (-2.0-3.0); BG CARBOXYHEMOGLOBIN 0.9 % (0.5-1.5); BG DEOXYHEMOGLOBIN 2.3 % (0.0-5.0); BG FRACTION INSPIRED OXYGEN 85; BG HCO3 ACT 29.8 mmol/L (21.0-28.0); BG METHEMOGLOBIN 0.0 % (0.5-1.5); BG OXYGEN SATURATION 97.7 % (94.0-98.0); BG OXYHEMOGLOBIN 96.8 % (94.0-98.0); BG PCO2 38.5 mmHg (32.0-45.0); BG PEEP (cmH2O) 5.0 cmH2O; BG PH 7.506 (7.350-7.450); BG PO2 102.7 mmHg (83.0-108.0); BG SAMPLE SITE ALINE; BG TIDAL VOLUME(mL) 500.0 mL; BG TOTAL HEMOGLOBIN 10.5 g/dL (12.0-16.0); BG VENT MODE VENT - PRVC; BG VENT RATE 18.0 set
[2025-02-15 05:11] LABS: BASOPHILS % 0.4 % (0.0-2.0); EOSINOPHILS % 3.0 % (0.0-5.0); HEMATOCRIT. 30.7 % (36.0-48.0); HEMOGLOBIN. 9.9 g/dL (12.0-16.0); LYMPHOCYTES % 15.6 % (20.0-50.0); MEAN PLATELET VOLUME 9.8 fl (7.4-10.4); MONOCYTES % 12.8 % (2.0-8.0); NEUTROPHILS % 68.2 % (40.0-76.0); PLATELET 180 x1000/uL (130-400); RED BLOOD CELL COUNT 3.68 mill/uL (4.2-5.4); RED CELL DISTRIBUTION WIDTH 16.6 % (11.6-14.6)
[2025-02-15 05:21] LABS: CREATININE 1.1 mg/dL (0.6-1.0); INR 1.0
[2025-02-15 05:22] LABS: CREATINE KINASE MB FRACTION < 0.5 ng/mL (0.5-3.6); TRIGLYCERIDE 174 mg/dL (0-150); UREA NITROGEN BLOOD 44 mg/dL (9-23)
[2025-02-15 05:23] LABS: ASPARTATE AMINOTRANSFERASE 20 IU/L (<34)
[2025-02-15 05:24] LABS: BILIRUBIN DIRECT 0.3 mg/dL (<=3.0); BILIRUBIN TOTAL 0.6 mg/dL (0.1-1.0); PHOSPHORUS 3.2 mg/dL (2.5-4.9); PROTEIN TOTAL 6.4 g/dL (6.0-8.3)
[2025-02-15 06:31] LABS: BG BASE EXCESS 5.5 mmol/L (-2.0-3.0); BG CARBOXYHEMOGLOBIN 1.0 % (0.5-1.5); BG DEOXYHEMOGLOBIN 2.9 % (0.0-5.0); BG FRACTION INSPIRED OXYGEN 85; BG HCO3 ACT 29.2 mmol/L (21.0-28.0); BG METHEMOGLOBIN 0.3 % (0.5-1.5); BG OXYGEN SATURATION 97.1 % (94.0-98.0); BG OXYHEMOGLOBIN 95.8 % (94.0-98.0); BG PCO2 38.9 mmHg (32.0-45.0); BG PEEP (cmH2O) 5.0 cmH2O; BG PH 7.493 (7.350-7.450); BG PO2 92.2 mmHg (83.0-108.0); BG SAMPLE SITE ALINE; BG TIDAL VOLUME(mL) 500.0 mL; BG TOTAL HEMOGLOBIN 9.8 g/dL (12.0-16.0); BG VENT MODE VENT - PRVC; BG VENT RATE 18.0 set
[2025-02-15 12:27] LABS: BG BASE EXCESS 6.5 mmol/L (-2.0-3.0); BG CARBOXYHEMOGLOBIN 0.4 % (0.5-1.5); BG DEOXYHEMOGLOBIN 6.6 % (0.0-5.0); BG FRACTION INSPIRED OXYGEN 85; BG HCO3 ACT 29.8 mmol/L (21.0-28.0); BG METHEMOGLOBIN 0.3 % (0.5-1.5); BG OXYGEN SATURATION 93.4 % (94.0-98.0); BG OXYHEMOGLOBIN 92.7 % (94.0-98.0); BG PCO2 37.8 mmHg (32.0-45.0); BG PEEP (cmH2O) 5.0 cmH2O; BG PH 7.515 (7.350-7.450); BG PO2 66.5 mmHg (83.0-108.0); BG SAMPLE SITE ALINE; BG TIDAL VOLUME(mL) 500.0 mL; BG TOTAL HEMOGLOBIN 10.4 g/dL (12.0-16.0); BG VENT MODE VENT - AC; BG VENT RATE 18.0 set
[2025-02-15 13:55] LABS: BASOPHILS % 0.5 % (0.0-2.0); EOSINOPHILS % 2.2 % (0.0-5.0); HEMATOCRIT. 30.9 % (36.0-48.0); HEMOGLOBIN. 9.8 g/dL (12.0-16.0); LYMPHOCYTES % 19.1 % (20.0-50.0); MEAN PLATELET VOLUME 9.6 fl (7.4-10.4); MONOCYTES % 12.3 % (2.0-8.0); NEUTROPHILS % 65.9 % (40.0-76.0); PLATELET 188 x1000/uL (130-400); RED BLOOD CELL COUNT 3.70 mill/uL (4.2-5.4); RED CELL DISTRIBUTION WIDTH 15.6 % (11.6-14.6)
[2025-02-15 14:11] LABS: CREATININE 1.1 mg/dL (0.6-1.0); INR 1.1
[2025-02-15 14:12] LABS: CREATINE KINASE MB FRACTION < 0.5 ng/mL (0.5-3.6); UREA NITROGEN BLOOD 39 mg/dL (9-23)
[2025-02-15 14:13] LABS: ASPARTATE AMINOTRANSFERASE 23 IU/L (<34)
[2025-02-15 14:14] LABS: BILIRUBIN DIRECT 0.2 mg/dL (<=3.0); BILIRUBIN TOTAL 0.6 mg/dL (0.1-1.0); PHOSPHORUS 3.1 mg/dL (2.5-4.9); PROTEIN TOTAL 6.3 g/dL (6.0-8.3)
[2025-02-15] MEDS ORDERED: HEPARIN 5000 UNITS/ML VIAL IV SCH (15:00)
[2025-02-15 15:30] LABS: CLARITY URINE CLEAR (CLEAR); COLOR URINE YELLOW (YELLOW); GLUCOSE URINE NEGATIVE (NEGATIVE); KETONES URINE NEGATIVE (NEGATIVE); LEUKOCYTE ESTERASE URINE NEGATIVE (NEGATIVE); NITRITE URINE NEGATIVE (NEGATIVE); OCCULT BLOOD URINE TRACE (NEGATIVE); PH URINE 7.0 (4.5-8.0); PROTEIN URINE 1+ (NEGATIVE); SPECIFIC GRAVITY URINE 1.008 (1.005-1.030); UROBILINOGEN URINE 0.2 E.U./dL (0.2-1.0)
[2025-02-15 15:56] LABS: BACTERIA URINE 1+
[2025-02-15 15:57] LABS: RBC URINE 0-2 /hpf (0-2); SQUAMOUS EPITHELIAL CELL URINE FEW /lpf (RARE/1+); WBC URINE 0-2 /hpf (0-2); YEAST URINE 3+
== END 2025-02-15 18:51 | DRG 720 ==
LOC: ER 06:54 → 5EST 09:28 → EDBEDREQTM 09:31 → EDBEDREQ 09:31 → EDBEDREQSVC 09:31 → ENRESERV 10:02 → CANRESERV 10:02 → EDBEDREQSVC 10:14 → ENRESERV 10:32 → CVICU 17:47
PROVIDERS: ADMIT Internal Medicine; ATTEND Internal Medicine
PROC: 5A1955Z Respiratory Ventilation, Greater than 96 Consecutive Hours (ICD-10-PCS; principal; 2025-02-05)
PROC: 0BH17EZ Insertion of Endotracheal Airway into Trachea, Via Natural or Artificial Opening (ICD-10-PCS; 2025-02-05)
PROC: 5A09357 Assistance with Respiratory Ventilation, Less than 24 Consecutive Hours, Continuous Positive Airway Pressure (ICD-10-PCS; 2025-02-05)
PROC: 5A12012 Performance of Cardiac Output, Single, Manual (ICD-10-PCS; 2025-02-05)
PROC: 02HV33Z Insertion of Infusion Device into Superior Vena Cava, Percutaneous Approach (ICD-10-PCS; 2025-02-06)
PROC: B548ZZA Ultrasonography of Superior Vena Cava, Guidance (ICD-10-PCS; 2025-02-06)
PROC: 5A1D70Z Performance of Urinary Filtration, Intermittent, Less than 6 Hours Per Day (ICD-10-PCS; 2025-02-06)
PROC: 5A1D70Z Performance of Urinary Filtration, Intermittent, Less than 6 Hours Per Day (ICD-10-PCS; 2025-02-07)
PROC: 4A00X4Z Measurement of Central Nervous Electrical Activity, External Approach (ICD-10-PCS; 2025-02-07)
PROC: GZ56ZZZ Individual Psychotherapy, Supportive (ICD-10-PCS; 2025-02-08)
PROC: 02HV33Z Insertion of Infusion Device into Superior Vena Cava, Percutaneous Approach (ICD-10-PCS; 2025-02-10)
PROC: B548ZZA Ultrasonography of Superior Vena Cava, Guidance (ICD-10-PCS; 2025-02-10)
PROC: 30233N1 Transfusion of Nonautologous Red Blood Cells into Peripheral Vein, Percutaneous Approach (ICD-10-PCS; 2025-02-15)
PROC: 03HY32Z Insertion of Monitoring Device into Upper Artery, Percutaneous Approach (ICD-10-PCS; 2025-02-15)
DX: A41.9 Sepsis, unspecified organism (principal); I46.9 Cardiac arrest, cause unspecified; N17.0 Acute kidney failure with tubular necrosis; G93.1 Anoxic brain damage, not elsewhere classified; G92.8 Other toxic encephalopathy; J96.01 Acute respiratory failure with hypoxia; I50.33 Acute on chronic diastolic (congestive) heart failure; Z51.5 Encounter for palliative care; J18.9 Pneumonia, unspecified organism; E87.0 Hyperosmolality and hypernatremia; E87.1 Hypo-osmolality and hyponatremia; B96.1 Klebsiella pneumoniae [K. pneumoniae] as the cause of diseases classified elsewhere; I27.20 Pulmonary hypertension, unspecified; D64.9 Anemia, unspecified; E11.22 Type 2 diabetes mellitus with diabetic chronic kidney disease; I13.0 Hypertensive heart and chronic kidney disease with heart failure and stage 1 through stage 4 chronic kidney disease, or unspecified chronic kidney disease; Z20.822 Contact with and (suspected) exposure to COVID-19; E66.01 Morbid (severe) obesity due to excess calories; E87.5 Hyperkalemia; N18.9 Chronic kidney disease, unspecified; F32.9 Major depressive disorder, single episode, unspecified; E11.51 Type 2 diabetes mellitus with diabetic peripheral angiopathy without gangrene; I16.0 Hypertensive urgency; G25.3 Myoclonus; F12.90 Cannabis use, unspecified, uncomplicated; R56.9 Unspecified convulsions; S70.312A Abrasion, left thigh, initial encounter; L30.4 Erythema intertrigo; E11.69 Type 2 diabetes mellitus with other specified complication; M86.8X7 Other osteomyelitis, ankle and foot; R32 Unspecified urinary incontinence; E11.65 Type 2 diabetes mellitus with hyperglycemia; Z16.12 Extended spectrum beta lactamase (ESBL) resistance; T87.44 Infection of amputation stump, left lower extremity; E88.819 Insulin resistance, unspecified; T40.601A Poisoning by unspecified narcotics, accidental (unintentional), initial encounter; E78.00 Pure hypercholesterolemia, unspecified; Z89.432 Acquired absence of left foot; Z79.4 Long term (current) use of insulin; Z68.44 Body mass index [BMI] 60.0-69.9, adult; X58.XXXA Exposure to other specified factors, initial encounter; Y93.89 Activity, other specified; Y92.89 Other specified places as the place of occurrence of the external cause; Y99.8 Other external cause status; Y83.8 Other surgical procedures as the cause of abnormal reaction of the patient, or of later complication, without mention of misadventure at the time of the procedure
CPT/HCPCS: 31500; 31720; 36415; 36556; 36573; 36600; 71045; 73630; 73700; 76700; 77001; 80048; 80053; 80061; 80076; 80202; 80305; 81003; 81025; 82150; 82248; 82375; 82550; 82553; 82805; 82962; 83036; 83519; 83605; 83735; 83880; 84100; 84132; 84145; 84443; 84478; 84484; 85025; 86705; 86706; 86709; 86850; 86900; 86920; 87070; 87077; 87186; 87340; 87426; 88307; 88331; 90935; 93005; 93306; 94002; 94003; 94070; 94640; 94660; 94664; 94760; 95816; 96374; 96375; 98960; 99291; A4606; C1725; C1752; J0360; J0456; J0612; J0696; J1642; J1644; J1650; J1815; J1938; J1953; J2003; J2185; J2250; J2312; J2405; J2470; J2704; J2919; J3373; J3490; J7050; J7608; P9016; J0131